=== PATIENT | female | born 1960 | race Caucasian/White ===

== ENCOUNTER 2018-08-23 12:32 | Inpatient (IN) | payer BC, MEDICARE ==
[~2018-08-23] VITALS: Ht 162.6 cm; Wt 118.1 kg
[2018-08-23] MEDS ORDERED: LASIX 40 MG TAB40 MG PO (12:45)
[2018-08-23] MEDS ORDERED: XARELTO20 MG PO (12:46)
[2018-08-23] MEDS ORDERED: BYSTOLIC2.5 MG PO (12:46)
[2018-08-23] MEDS ORDERED: COMPAZINE10 MG PO (12:47)
[2018-08-23] MEDS ORDERED: OMEPRAZOLE20 M2 PO (12:47)
[2018-08-23] MEDS ORDERED: ZYRTEC10 MG PO (12:48)
[2018-08-23] MEDS ORDERED: ZOLPIDEM5 MG PO (12:49)
[2018-08-23 13:21] LABS: URINE BILIRUBIN - DIPSTICK NEGATIVE (NEGATIVE); URINE BLOOD DIPSTICK NEGATIVE (NEGATIVE); URINE COLOR YELLOW; URINE GLUCOSE - DIPSTICK NEGATIVE (NEGATIVE); URINE KETONE NEGATIVE (NEGATIVE); URINE PROTEIN - DIPSTICK NEGATIVE (NEG-TRACE)
[2018-08-23 13:21] LABS: HEMATOCRIT 42.5 % (37.0-47.0); HEMOGLOBIN 14.6 g/dl (12.0-16.0); IMMATURE GRANULOCYTES 0.5 % (0.0-5.0); MEAN CELL VOLUME 87.8 fL CALC (80.0-100.0); MEAN CORPUSCULAR HGB 30.2 pG CALC (26.0-32.0); MEAN CORPUSCULAR HGB CONC 34.4 g/L CALC (32.0-36.0); NEUT# 6.89 thou/uL (2.00-7.15); RED BLOOD COUNT 4.84 mill/uL (4.20-5.60); RED CELL DISTRI WIDTH 13.2 % (11.5-15.5)
[2018-08-23 13:22] LABS: URINE LEUK ESTERASE SMALL (NEGATIVE); URINE NITRITE - DIPSTICK POSITIVE (Negative)
[2018-08-23 13:23] LABS: URINE CLARITY TURBID
[2018-08-23 13:30] LABS: URINE BACTERIA MANY hpf; URINE SQUAMOUS EPITHELIAL CELL FEW EPI/hpf (0-FEW); URINE WBC 20-50 WBC/hpf (0-5)
[2018-08-23 13:53] LABS: ALBUMIN 4.1 g/dL (3.2-5.0); BILIRUBIN, TOTAL 0.7 mg/dL (0.0-1.4); CREATININE 1.5 mg/dL (0.5-1.0); TOTAL PROTEIN 6.8 g/dL (6.3-8.2)
[2018-08-23 13:54] LABS: POTASSIUM 2.3 mmol/l (3.5-5.1)
[2018-08-23 16:24] VITALS: BP 118/76
[2018-08-23 20:00] VITALS: BP 106/66
[2018-08-24 00:04] VITALS: BP 98/62
[2018-08-24 04:15] VITALS: BP 102/63
[2018-08-24 04:58] LABS: HEMATOCRIT 36.8 % (37.0-47.0); IMMATURE GRANULOCYTES 0.4 % (0.0-5.0); MEAN CELL VOLUME 89.1 fL CALC (80.0-100.0); MEAN CORPUSCULAR HGB 29.8 pG CALC (26.0-32.0); MEAN CORPUSCULAR HGB CONC 33.4 g/L CALC (32.0-36.0); NEUT# 3.45 thou/uL (2.00-7.15); RED BLOOD COUNT 4.13 mill/uL (4.20-5.60); RED CELL DISTRI WIDTH 13.4 % (11.5-15.5)
[2018-08-24 05:01] LABS: HEMOGLOBIN 12.3 g/dl (12.0-16.0)
[2018-08-24 05:17] LABS: ANION GAP 8 (6-22 (CALC)); BUN 20 mg/dL (7-17); BUN/CREATININE RATIO 21 (12-20 (CALC)); CARBON DIOXIDE 36 mmol/l (22-30); CHLORIDE 97 mmol/l (95-108); CREATININE 0.9 mg/dL (0.5-1.0); GFR > 60 ML/MIN (>=60 (CALC)); GFR FOR AFR.AMER. > 60 ML/MIN (>=60 (CALC)); MAGNESIUM 1.8 mg/dL (1.6-2.3); SODIUM 139 mmol/l (137-146)
[2018-08-24 05:21] LABS: POTASSIUM 2.3 mmol/l (3.5-5.1)
[2018-08-24 07:51] VITALS: BP 100/65
[2018-08-24 11:40] VITALS: BP 113/80
[2018-08-24 16:20] VITALS: BP 106/59
[2018-08-24 20:00] VITALS: BP 98/63
[2018-08-25 00:35] VITALS: BP 87/54
[2018-08-25 05:16] LABS: HEMATOCRIT 36.2 % (37.0-47.0); HEMOGLOBIN 12.3 g/dl (12.0-16.0); IMMATURE GRANULOCYTES 0.2 % (0.0-5.0); MEAN CELL VOLUME 90.5 fL CALC (80.0-100.0); MEAN CORPUSCULAR HGB 30.8 pG CALC (26.0-32.0); NEUT# 3.1 thou/uL (2.00-7.15); RED CELL DISTRI WIDTH 13.4 % (11.5-15.5)
[2018-08-25 05:30] VITALS: BP 107/76
[2018-08-25 05:35] LABS: ANION GAP 6 (6-22 (CALC)); BUN 15 mg/dL (7-17); BUN/CREATININE RATIO 17 (12-20 (CALC)); CARBON DIOXIDE 32 mmol/l (22-30); CHLORIDE 104 mmol/l (95-108); CREATININE 0.9 mg/dL (0.5-1.0); GFR > 60 ML/MIN (>=60 (CALC)); GFR FOR AFR.AMER. > 60 ML/MIN (>=60 (CALC)); MAGNESIUM 1.8 mg/dL (1.6-2.3); POTASSIUM 2.8 mmol/l (3.5-5.1); SODIUM 140 mmol/l (137-146)
[2018-08-25 08:40] VITALS: BP 115/79
[2018-08-25 11:20] VITALS: BP 94/42
[2018-08-25] MEDS ORDERED: SINGULAIR10 MG PO (13:59)
[2018-08-25 15:34] VITALS: BP 98/64
[2018-08-25 19:57] VITALS: BP 119/80
[2018-08-26] VITALS (7 sets, daily range): BP systolic 102–140; BP diastolic 56–80
[2018-08-26 05:38] LABS: HEMATOCRIT 36.8 % (37.0-47.0); HEMOGLOBIN 12.2 g/dl (12.0-16.0); IMMATURE GRANULOCYTES 0.6 % (0.0-5.0); MEAN CELL VOLUME 91.8 fL CALC (80.0-100.0); MEAN CORPUSCULAR HGB 30.4 pG CALC (26.0-32.0); MEAN CORPUSCULAR HGB CONC 33.2 g/L CALC (32.0-36.0); NEUT# 3.51 thou/uL (2.00-7.15); RED BLOOD COUNT 4.01 mill/uL (4.20-5.60); RED CELL DISTRI WIDTH 13.7 % (11.5-15.5)
[2018-08-26 06:00] LABS: ANION GAP 8 (6-22 (CALC)); BUN 11 mg/dL (7-17); BUN/CREATININE RATIO 12 (12-20 (CALC)); CARBON DIOXIDE 29 mmol/l (22-30); CHLORIDE 108 mmol/l (95-108); CREATININE 0.9 mg/dL (0.5-1.0); GFR > 60 ML/MIN (>=60 (CALC)); GFR FOR AFR.AMER. > 60 ML/MIN (>=60 (CALC)); MAGNESIUM 1.8 mg/dL (1.6-2.3); POTASSIUM 3.3 mmol/l (3.5-5.1); SODIUM 142 mmol/l (137-146)
[2018-08-27 05:05] VITALS: BP 132/78
[2018-08-27 05:13] LABS: HEMATOCRIT 41.9 % (37.0-47.0); IMMATURE GRANULOCYTES 0.7 % (0.0-5.0); MEAN CELL VOLUME 90.9 fL CALC (80.0-100.0); MEAN CORPUSCULAR HGB 30.4 pG CALC (26.0-32.0); MEAN CORPUSCULAR HGB CONC 33.4 g/L CALC (32.0-36.0); NEUT# 6.5 thou/uL (2.00-7.15); RED BLOOD COUNT 4.61 mill/uL (4.20-5.60); RED CELL DISTRI WIDTH 13.3 % (11.5-15.5)
[2018-08-27 05:42] LABS: ALBUMIN 3.4 g/dL (3.2-5.0); ALKALINE PHOSPHATASE 78 u/l (38-126); ANION GAP 10 (6-22 (CALC)); BILIRUBIN, TOTAL 0.3 mg/dL (0.0-1.4); BUN 11 mg/dL (7-17); BUN/CREATININE RATIO 13 (12-20 (CALC)); CARBON DIOXIDE 27 mmol/l (22-30); CHLORIDE 108 mmol/l (95-108); CREATININE 0.9 mg/dL (0.5-1.0); GFR > 60 ML/MIN (>=60 (CALC)); GFR FOR AFR.AMER. > 60 ML/MIN (>=60 (CALC)); MAGNESIUM 1.8 mg/dL (1.6-2.3); POTASSIUM 3.9 mmol/l (3.5-5.1); SGOT/AST 25 u/l (14-36); SODIUM 142 mmol/l (137-146); TOTAL PROTEIN 5.9 g/dL (6.3-8.2)
[2018-08-27 08:14] VITALS: BP 138/96
[2018-08-27] MEDS ORDERED: CIPROFLOXACIN500 M1 PO (12:13)
[2018-08-27] MEDS ORDERED: K-DUR/KLOR-CON20 MEQ PO (12:14)
== END 2018-08-27 12:54 | disposition home or self-care (01) | DRG 690 ==
LOC: ED 12:32 → ED-I 14:55 → ED 15:18 → MS2 15:19
PROVIDERS: Emergency Medicine; Internal Medicine Nephrology; Nurse Practitioner Family; ADMIT Internal Medicine; ATTEND Internal Medicine
PROC: 3E0234Z Introduction of Serum, Toxoid and Vaccine into Muscle, Percutaneous Approach (ICD-10-PCS; principal; 2018-08-25)
DX: N39.0 Urinary tract infection, site not specified (principal); N17.9 Acute kidney failure, unspecified; L03.313 Cellulitis of chest wall; C50.912 Malignant neoplasm of unspecified site of left female breast; I12.9 Hypertensive chronic kidney disease with stage 1 through stage 4 chronic kidney disease, or unspecified chronic kidney disease; N18.2 Chronic kidney disease, stage 2 (mild); E86.0 Dehydration; E87.6 Hypokalemia; I89.0 Lymphedema, not elsewhere classified; B37.3 Candidiasis of vulva and vagina; L30.4 Erythema intertrigo; B37.2 Candidiasis of skin and nail; B96.1 Klebsiella pneumoniae [K. pneumoniae] as the cause of diseases classified elsewhere; T50.2X5A Adverse effect of carbonic-anhydrase inhibitors, benzothiadiazides and other diuretics, initial encounter; T21.21XA Burn of second degree of chest wall, initial encounter; Y84.2 Radiological procedure and radiotherapy as the cause of abnormal reaction of the patient, or of later complication, without mention of misadventure at the time of the procedure; Z87.440 Personal history of urinary (tract) infections; Z92.3 Personal history of irradiation; Z92.21 Personal history of antineoplastic chemotherapy; Z90.12 Acquired absence of left breast and nipple; Z86.718 Personal history of other venous thrombosis and embolism; Z79.01 Long term (current) use of anticoagulants; Z17.0 Estrogen receptor positive status [ER+]; Z23 Encounter for immunization